=== PATIENT | female | born 1995 | race Caucasian/White ===

== ENCOUNTER 2017-02-09 10:33 | Emergency (ER) | payer OTHER ==
[2017-02-09 10:37] VITALS: BMI 24.0
--- NOTE | 2017-02-09 11:22 | PDOC ---
History of Present Illness - General Chief Complaint: Syncope/Near Syncope Stated Complaint: NEAR SYNCOPE, 17 WKS Time Seen by Provider: 02/09/17 10:44 History Source: Patient Exam Limitations: No Limitations - History of Present Illness Initial Comments: 02/09/17 12:02 21-year-old female presents the ED with complaints of sudden onset of nausea followed by 2 episodes of vomiting. Patient states immediately after vomiting she felt dizzy followed by a syncopal episode. Patient states had no headache, abdominal pain, or fever prior to the episode. Patient states currently is asymptomatic and unsure why she vomited but states maybe it was due to the medication she recently received for chlamydia treatment. Patient has no other complaints but is currently 16 weeks and is followed at the clinic. Patient has no urinary complaints or bowel complaints. Pt states has been eating and drinking , progressing well with . Presenting Symptoms: Syncope, Vomiting Timing/Duration: reports: resolved prior to arrival Severity/Quality: reports: moderate Chest Pain Radiation: reports: no radiation Nitro Today/Relief: Yes: no nitro taken today Aspirin Received prior to arrival (Core Measure): Yes: no aspirin today Associated Symptoms: Yes: Syncope, Vomiting Past History - Travel Traveled outside of the country in the last 30 days: No Close contact w/someone who was outside of country & ill: No - Past Medical History Allergies/Adverse Reactions: Allergies Allergy/AdvReac Type Severity Reaction Status Date / Time No Known Allergies Allergy Verified 02/09/17 10:37 Other medical history: PATIENT DENIES MEDICAL HISTORY - Reproductive History Is Patient Now?: Yes - Psycho/Social/Smoking Cessation Hx Suicidal Ideation: No Smoking History: Never smoked Hx Alcohol Use: No Drug/Substance Use Hx: No Patient Lives Alone: No Lives with/in: spouse/SO Review of Systems - Review of Systems Able to Perform ROS?: Yes Constitutional: No: Symptoms Reported HEENTM: No: Symptoms Reported Respiratory: No: Symptoms reported Cardiac (ROS): Yes: Syncope ABD/GI: Yes: Nausea, Vomiting. No: Diarrhea, Poor Appetite, Poor Fluid Intake, Abdominal cramping : No: Symptoms Reported Musculoskeletal: No: Symptoms Reported Integumentary: No: Symptoms Reported Neurological: No: Symptoms reported Endocrine: No: Symptoms Reported Hematologic/Lymphatic: No: Symptoms Reported *Physical Exam - Vital Signs Last Vital Signs Temp Pulse Resp BP Pulse Ox 98.2 F 68 18 104/58 99 02/09/17 10:34 02/09/17 10:34 02/09/17 10:34 02/09/17 10:34 02/09/17 10:34 - Physical Exam General Appearance: Yes: Nourished, Appropriately Dressed. No: Apparent Distress HEENT: positive: EOMI, JERO. negative: Pale Conjunctivae Neck: positive: Supple Respiratory/Chest: positive: Lungs Clear, Normal Breath Sounds. negative: Respiratory Distress, Accessory Muscle Use Cardiovascular: positive: Regular Rhythm, Regular Rate. negative: Murmur Gastrointestinal/Abdominal: positive: Soft. negative: Tenderness Extremity: positive: Normal Capillary Refill. negative: Pedal Edema Integumentary: positive: Normal Color, Warm, Moist Neurologic: positive: Normal Mood/Affect, Motor Strength 01/01 ED Treatment Course - LABORATORY CBC & Chemistry Diagram: 02/09/17 11:30 02/09/17 11:30 - ADDITIONAL ORDERS Additional order review: Laboratory Results 02/09/17 02/09/17 11:30 11:30 Sodium 137 Potassium 4.0 Chloride 106 Carbon Dioxide 22 Anion Gap 9 BUN 8 Creatinine 0.3 L Creat Clearance w eGFR > 60 Random Glucose 70 L Calcium 8.8 Magnesium 1.8 Total Bilirubin 0.2 AST 21 ALT 19 Alkaline Phosphatase 59 Creatine Kinase 68 Troponin I < 0.02 Total Protein 6.6 Albumin 3.3 L Urine Color Yellow Urine Appearance Slcloudy Urine pH 8.0 Urine Protein 1+ H Urine Glucose (UA) Negative Urine Ketones Negative Urine Blood Negative Urine Nitrite Negative Urine Bilirubin Negative Urine Urobilinogen Negative Ur Leukocyte Esterase 2+ H Urine RBC 2 Urine WBC 7 Ur Epithelial Cells Rare Urine Mucus Few 02/09/17 11:30 RBC 4.05 MCV 87.4 MCHC 34.5 RDW 14.6 MPV 7.5 Neutrophils % 86.6 H Lymphocytes % 9.0 Monocytes % 3.9 Eosinophils % 0.2 Basophils % 0.3 - RADIOLOGY Radiology Studies Ordered: Category Date Time Status US(SINGLE) [US] Stat Ultrasound 02/09/17 12:11 Completed Medical Decision Making - Medical Decision Making 02/09/17 12:08 Patient status post 2 episodes of vomiting followed by a syncopal episode. Patient states no complaints presently and is currently 16 weeks . Patient states was treated for chlamydia last week but denied any associated symptoms prior to today. Patient on exam had no acute findings. Patient with no complaints presently. Patient ordered for labs, urine, EKG and ultrasound. 02/09/17 13:40 Laboratory Tests 02/09/17 02/09/17 02/09/17 11:30 11:30 11:30 WBC 14.1 H Hgb 12.2 Hct 35.4 Neutrophils % 86.6 H Sodium 137 Potassium 4.0 Chloride 106 Carbon Dioxide 22 Anion Gap 9 Creatinine 0.3 L Random Glucose 70 L Creatine Kinase 68 Troponin I < 0.02 Urine Protein 1+ H Urine Nitrite Negative Ur Leukocyte Esterase 2+ H Urine WBC 7 Ultrasound shows a single live intrauterine measuring 17 weeks 4 days with a heart rate of 1 48 bpm. Patient given 2 containers of orange juice secondary to low glucose of 70. Patient also be treated with Macrobid secondary to bacteremia noted in urine. Urine culture was sent. Patient to follow-up with her PAPER HANDLER. *DC/Admit/Observation/Transfer Diagnosis at time of Disposition: Urinary tract infection Qualifiers: Urinary tract infection type: acute cystitis Hematuria presence: without hematuria Qualified Code(s): N30.00 - Acute cystitis without hematuria Syncope Qualifiers: Syncope type: vasovagal syncope Qualified Code(s): R55 - Syncope and collapse - Discharge Dispostion Disposition: HOME Condition at time of disposition: Improved - Referrals Referrals: Linda Wilson MD [Primary Care Provider] - - Patient Instructions Printed Discharge Instructions: DI for Syncope in Adults (Fainting), DI for Urinary Tract Infection (UTI) Additional Instructions: Please eat small frequent meals throughout the day and take antibiotics as prescribed. Patient plenty of fluids and follow-up with the DESIGN SUPERVISOR.
[2017-02-09 11:58] LABS: URINE APPEARANCE SLCLOUDY; URINE BILIRUBIN NEGATIVE (NEGATIVE); URINE BLOOD NEGATIVE (NEGATIVE); URINE COLOR YELLOW; URINE GLUCOSE (UA) NEGATIVE (NEGATIVE); URINE KETONE NEGATIVE (NEGATIVE); URINE LEUK ESTERASE 2+ (NEGATIVE); URINE NITRITE NEGATIVE (NEGATIVE); URINE PROTEIN 1+ (NEGATIVE); URINE UROBILINOGEN NEGATIVE E.U./dl (0.2-1.0)
[2017-02-09 12:00] LABS: URINE MUCUS FEW; URINE RBC 2 /hpf (0-3); URINE WBC 7 /hpf (3-5)
[2017-02-09 12:06] LABS: BASOPHIL 0.3 % (0-2.0); EOSINOPHIL 0.2 % (0-4.5); MCH 30.2 pg (25.7-33.7); MCHC 34.5 g/dl (32.0-36.0); MEAN CELL VOLUME 87.4 fl (80-96); MEAN PLT VOLUME 7.5 fl (7.5-11.1); NEUTROPHILS 86.6 % (42.8-82.8); PLATELET COUNT 249 K/MM3 (134-434); RDW 14.6 % (11.6-15.6); WHITE BLOOD COUNT 14.1 K/mm3 (4.0-10.0)
[2017-02-09 12:33] LABS: ALBUMIN 3.3 g/dl (3.4-5.0); ALK PHOS 59 U/L (45-117); BILIRUBIN,TOTAL 0.2 mg/dL (0.2-1.0); CALCIUM 8.8 mg/dL (8.5-10.1); CO2 22 mmol/L (21-32); COCKROFT - GAULT 261.2645; CREATININE 0.3 mg/dL (0.55-1.02); GLUCOSE,RANDOM 70 mg/dL (74-106); SGPT/ALT 19 U/L (12-78); TOT PROT 6.6 g/dl (6.4-8.2); TROPONIN I < 0.02 ng/ml (0.00-0.05)
[2017-02-09 12:36] LABS: ANION GAP 9 (8-16); MAGNESIUM 1.8 mg/dL (1.8-2.4); SGOT/AST 21 U/L (15-37)
[2017-02-09 14:00] VITALS: BP 102/62; PULSE 72; TEMP 98.6
--- NOTE | 2017-02-09 15:21 | EKG ---
Test Reason : Blood Pressure : / mmHG Vent. Rate : 067 BPM Atrial Rate : 067 BPM P-R Int : 170 ms QRS Dur : 082 ms QT Int : 404 ms P-R-T Axes : 000 024 022 degrees QTc Int : 426 ms NORMAL SINUS RHYTHM NORMAL ECG NO PREVIOUS ECGS AVAILABLE Confirmed by SILVESTRE LAYNE MD ([id number]) on 02/09/2017 3:20:59 PM Referred By: Confirmed By:SILVESTRE LAYNE MD
== END 2017-02-09 13:57 | disposition home or self-care (01) ==
LOC: JER 10:33
DX: O23.42 Unspecified infection of urinary tract in pregnancy, second trimester (principal); Z3A.17 17 weeks gestation of pregnancy; R55 Syncope and collapse
CPT/HCPCS: 36415; 76801-TC; 80053; 81003; 81015; 82550; 83735; 84484; 85025; 93005; 93010; 99285-25

== ENCOUNTER 2017-02-13 13:20 | Emergency (ER) | payer OTHER ==
[2017-02-13 13:26] VITALS: BMI 24.0
[2017-02-13] MEDS ORDERED: METOCLOPRAMIDE HCL 10 MG TABLET (FP) PO ONE ×2 (14:19→14:43)
[2017-02-13] MEDS ORDERED: ACETAMINOPHEN 325 MG TABLET (FP) PO ONE (14:19)
--- NOTE | 2017-02-13 14:32 | PDOC ---
History of Present Illness <Tariq Lewis - Last Filed: 02/13/17 15:14> - General History Source: Patient Exam Limitations: No Limitations - History of Present Illness Initial Comments: 02/13/17 17:30 The patient is a 21 year old female, 17 weeks , with no significant past medical history, who presents to the ER with persistent headache for five days. Patient states she syncopized five days ago for which she came here to the ER to get checked. Patient says she was diagnosed with a UTI and was given 3 -day supply of Macrobin antiobiotic. Patient states she has been having a mild persistent headaches for five days and would like to know if whether the antiobiotics or the syncopal episode caused this headache. Patient localizes the headache to the temples and states the pain is more of a discomfort and very mild. She states she took tylenol without relief of symptoms. The pt denies any vision changes, n/v, neck pain, back pain, numbness/tingling/ weakness. Patient states this is her first . Denies nausea, vomiting, abdominal pain Denies syncope, lightheadedness, dizziness, changes in vision Denies fever, chills, cough <Mishel Mary - Last Filed: 02/13/17 17:31> - General Chief Complaint: Headache Stated Complaint: HEADACHE/17 WKS PRG Time Seen by Provider: 02/13/17 14:04 Past History - Psycho/Social/Smoking Cessation Hx Anxiety: No Suicidal Ideation: No Smoking History: Never smoked Hx Alcohol Use: No Drug/Substance Use Hx: No Substance Use Type: None <Tariq Lewis - Last Filed: 02/13/17 15:14> <Mishel Mary - Last Filed: 02/13/17 17:31> - Past Medical History Allergies/Adverse Reactions: Allergies Allergy/AdvReac Type Severity Reaction Status Date / Time No Known Allergies Allergy Verified 02/13/17 13:26 Home Medications: Ambulatory Orders Nitrofurantoin Monohyd/M-Cryst [Macrobid -] 100 mg PO BID #14 capsule 02/09/17 Review of Systems - Review of Systems Able to Perform ROS?: Yes Comments:: 02/13/17 17:30 CONSTITUTIONAL: No reported: Fever, Chills, Diaphoresis, Generalized Weakness, Malaise, Loss of Appetite HEENT: No reported: Rhinorrhea, Nasal Congestion, Throat Pain, Throat Swelling, Difficulty Swallowing, Mouth Swelling, Ear Pain, Eye Pain, Visual Changes CARDIOVASCULAR: No reported: Chest Pain, Syncope, Palpitations, Irregular Heart Rate, Lightheadedness, Peripheral Edema RESPIRATORY: No reported: Cough, Shortness of Breath, SOB with Exertion, Orthopnea, Wheezing , Stridor, Hemoptysis GASTROINTESTINAL: No reported: Abdominal pain, Abdominal Distension, Nausea, Vomiting, Diarrhea, Constipation, Melena, Hematochezia GENITOURINARY: No reported: Dysuria, Frequency, Urgency, Hesitancy, Flank Pain, Genital Pain MUSCULOSKELETAL: No reported: Myalgia, Arthralgia, Joint Swelling, Back pain, Neck Pain SKIN: No reported: Rash, Itching, Pallor HEMEATOLOGIC/IMMUNOLOGIC: No reported: Easy Bleeding, Easy Bruising, Lymphadenopathy, Frequent infections ENDOCRINE: No reported: Unexplained Weight Gain, Unexplained Weight Loss, Heat Intolerance , Cold Intolerance NEUROLOGIC: Reported: Headache No reported: Focal Weakness, Paresthesias, Vertigo, Lightheadedness, Unsteady Gait, Seizure, Mental Status Changes, Incontinence PSYCHIATRIC: No reported: Anxiety, Depression <Uts,Mishel - Last Filed: 02/13/17 17:31> *Physical Exam - Vital Signs Last Vital Signs Temp Pulse Resp BP Pulse Ox 98.4 F 62 18 120/64 100 02/13/17 13:22 02/13/17 13:22 02/13/17 13:22 02/13/17 13:22 02/13/17 13:22 <Debbie,Tariq - Last Filed: 02/13/17 15:14> - Vital Signs Last Vital Signs Temp Pulse Resp BP Pulse Ox 97.1 F L 67 20 107/65 100 02/13/17 15:30 02/13/17 15:30 02/13/17 15:30 02/13/17 15:30 02/13/17 15:30 - Physical Exam Comments: 02/13/17 17:30 GENERAL: The patient is awake, alert, and fully oriented, Nontoxic - in no acute distress. HEAD: Normocephalic, atraumatic. EYES: extraocular movements intact, sclera anicteric, conjunctiva clear. ENT: Normal voice, Moist mucous membranes. NECK: Normal range of motion, supple LUNGS: Breath sounds equal, clear to auscultation bilaterally. No wheezes, no rhonchi, no rales. HEART: Regular rate and rhythm, without murmur, rub or gallop. ABDOMEN: Soft, nontender, normoactive bowel sounds. No guarding, no rebound.No CVA tenderness EXTREMITIES: Normal range of motion, no edema. No clubbing or cyanosis. No cords, erythema, or tenderness. NEUROLOGICAL: No facial assymetry, Normal speech, PSYCH: Normal mood, normal affect. SKIN: Warm, Dry, normal turgor <TyraMishel - Last Filed: 02/13/17 17:31> ED Treatment Course - Medications Given in the ED: ED Medications Discontinued Medications Generic Name Dose Route Start Last Admin Trade Name Olga PRN Reason Stop Dose Admin Acetaminophen 650 mg 02/13/17 14:19 02/13/17 14:45 Tylenol - PO 02/13/17 14:20 650 mg ONCE ONE Administration Metoclopramide HCl 10 mg 02/13/17 14:19 02/13/17 14:45 Reglan - PO 02/13/17 14:20 10 mg ONCE ONE Administration <Tyra,Mishel - Last Filed: 02/13/17 17:31> Medical Decision Making - Medical Decision Making 02/13/17 14:22 21y F at approx 17 weeks presents with headache, recent diagnosis of uti, finshed macrobid course. pt states headache is constant, mild, frontal w/o associated n/v, vision changes, photophobia, f/c, neck pain. Pt denies phi pain but states it is 'there'. pts exam is unremarkble suspect tension headache possible related to trauma. will give tylenol and reglan will reassess 02/13/17 15:10 pt feels improed no headache currently wants to go home chatting comfortably with her friend without complaints. I discussed the physical exam findings, ancillary test results and final diagnoses with the patient. I answered all of the patient's questions. The patient was satisfied with the care received and felt comfortable with the discharge plan and treatment plan. The patient will call their primary care physician within 24 hours to arrange follow-up and will return to the Emergency Department with any new, persistent or worsening symptoms. <Tariq Lewis - Last Filed: 02/13/17 15:14> *DC/Admit/Observation/Transfer - Discharge Dispostion Admit: No <Tariq Lewis - Last Filed: 02/13/17 15:14> - Attestations Scribe Attestion: 02/13/17 17:30 Documentation prepared by Mishel Mary, acting as center medical and lab director for Tariq Lewis MD. <Mishel Mary - Last Filed: 02/13/17 17:31> Diagnosis at time of Disposition: Headache Qualifiers: Headache type: tension-type Headache chronicity pattern: acute headache Intractability: not intractable Qualified Code(s): G44.209 - Tension-type headache, unspecified, not intractable - Discharge Dispostion Disposition: HOME Condition at time of disposition: Improved - Referrals Referrals: Linda Wilson MD [Primary Care Provider] - - Patient Instructions Printed Discharge Instructions: DI for Hormonal and Tension Headaches Additional Instructions: Vuelva al departamento de emergencia inmediatamente con CUALQUIER nuevo, persistente o empeorando los sntomas. Debe llamar y seguir con rashid mdico maana para lucia evaluacin ms detallada de perri sntomas. Los resultados fueron discutidos con usted. Por favor, asegrese de que rashid mdico revise los resultados de rashid evaluacin de emergencia. Si usted tuvo alguna radiografa concepicón rashid visita, fue ledo preliminarmente por m mismo, un Radilogo lo revisar y si hay algn hallazgo adicional le llamaremos. == Return to the emergency department immediately with ANY new, persistent or worsening symptoms. You MUST call and follow up with your doctor tomorrow for further evaluation of your symptoms. Results were discussed with you. Please make sure your doctor reviews the results of your emergency evaluation. If you had any xrays during your visit, it was read preliminarily by myself, a Radiologist will review it and if there are any additional findings we will call you. Print Language: MONGOLIAN
[2017-02-13] MEDS ORDERED: ACETAMINOPHEN 325 MG TABLET (FP) ONE (14:42)
[2017-02-13 15:58] VITALS: BP 107/65; PULSE 67; TEMP 97.1
== END 2017-02-13 15:30 | disposition home or self-care (01) ==
LOC: JER 13:20
DX: O26.892 Other specified pregnancy related conditions, second trimester (principal); G44.209 Tension-type headache, unspecified, not intractable; Z3A.17 17 weeks gestation of pregnancy
CPT/HCPCS: 99282-25

== ENCOUNTER 2017-07-19 17:40 | Inpatient (IN) | payer OTHER ==
[2017-07-19] MEDS: DEXTROSE 5%-LACTATED RINGERS 1,000 ML IV SCH (17:50)
[2017-07-19 18:19] VITALS: BMI 28.1
[2017-07-19 18:26] LABS: BASOPHIL 0.3 % (0-2.0); MCH 25.6 pg (25.7-33.7); MCHC 32.6 g/dl (32.0-36.0); MEAN CELL VOLUME 78.5 fl (80-96); NEUTROPHILS 79.5 % (42.8-82.8); PLATELET COUNT 305 K/MM3 (134-434); RDW 15.1 % (11.6-15.6); WHITE BLOOD COUNT 9.5 K/mm3 (4.0-10.0)
[2017-07-19 18:41] LABS: INR 0.94 (0.82-1.09); PROTHROMBIN TIME (PATIENT) 10.6 SEC (9.98-11.88)
[2017-07-19 18:43] LABS: ACTIVATED PTT 25.3 SECONDS (26.9-34.4)
[2017-07-19 18:51] LABS: ANION GAP 9 (8-16); CALCIUM 8.2 mg/dL (8.5-10.1); CO2 22 mmol/L (21-32); CREATININE 0.4 mg/dL (0.55-1.02); GLUCOSE,RANDOM 89 mg/dL (74-106)
[2017-07-19] MEDS ORDERED: BUTORPHANOL TARTRATE 1 MG/ML VIAL IVPB ONE (20:29)
[2017-07-19] MEDS ORDERED: BUTORPHANOL TARTRATE 1 MG/ML VIAL IVPB PRN (20:29)
[2017-07-19] MEDS ORDERED: PROMETHAZINE HCL 25 MG/1 ML VIAL IVPB ONE (20:45)
[2017-07-20] MEDS: DEXTROSE 5%-LACTATED RINGERS 1,000 ML IV SCH ×2 (01:32→08:44)
--- NOTE | 2017-07-20 03:25 | HP ---
Past Medical History - Admission Chief Complaint: Rupture of membrane History of Present Illness: 22 yo , @ 40.4 weeks gestation, EDC 07/16/17, admitted due to spontaneous rupture of membrane ( 3pm ). History Source: Patient Limitations to Obtaining History: No Limitations - Past Medical History ...: 1 ...Para: 0 ...Term: 0 ...: 0 ...Spon : 0 ...Induced : 0 ...Multiple Gestation: 0 ...LMP: 11/07/16 ... Weeks Gestation by Dates: 36.2 ...EDC by Dates: 08/14/17 ...EDC by Sono: 07/16/17 - Past Surgical History Past Surgical History: Yes: None Hx Myomectomy: No Hx Transabdominal Cerclage: No - Smoking History Smoking history: Never smoked Have you smoked in the past 12 months: No - Alcohol/Substance Use Hx Alcohol Use: No History of Substance Use: reports: None - Social History History of Recent Travel: No Home Medications - Allergies Allergies/Adverse Reactions: Allergies Allergy/AdvReac Type Severity Reaction Status Date / Time No Known Allergies Allergy Verified 07/19/17 18:21 - Home Medications Home Medications: Ambulatory Orders Vit #108/Iron/FA [ One Tablet] 1 tab PO DAILY 07/19/17 Family Disease History - Family Disease History Family History: Unremarkable Review of Systems - Review of Systems Constitutional: reports: No Symptoms Eyes: reports: No Symptoms HENT: reports: No Symptoms Neck: reports: No Symptoms Cardiovascular: reports: No Symptoms Respiratory: reports: No Symptoms Gastrointestinal: reports: No Symptoms Genitourinary: reports: Other (Leakage of fluid) Breasts: reports: No Symptoms Reported Musculoskeletal: reports: No Symptoms Integumentary: reports: No Symptoms Neurological: reports: No Symptoms Endocrine: reports: No Symptoms Hematology/Lymphatic: reports: No Symptoms Physical Exam - Maternity Vital Signs: Vital Signs Temperature 98.1 F 07/20/17 02:00 Pulse Rate 68 07/20/17 02:00 Respiratory Rate 20 07/20/17 02:00 Blood Pressure 131/76 07/20/17 02:00 O2 Sat by Pulse Oximetry (%) Constitutional: Yes: Well Nourished Eyes: Yes: Conjunctiva Clear HENT: Yes: Atraumatic Neck: Yes: Supple, Trachea Midline Cardiovascular: Yes: Regular Rate and Rhythm Lungs: Clear to auscultation Breast(s): Yes: WNL - Abdominal Exam/OB Number of Fetuses: Single Presentation: Vertex Contractions: Yes Regularity: Regular Intensity: Moderate - Vaginal Exam/OB Dilatation (cm): 3 Effacement (%): 80 Amniotic Membrane Status: Ruptured Meconium: [place]: -2 - Physical Exam ...Motor Strength: WNL Psychiatric: Yes: Alert, Oriented - Labs Lab Results: CBC, BMP 07/19/17 18:10 07/19/17 18:10 Problem List - Problems (1) Spontaneous rupture of amniotic membranes Code(s): ORB3800 - Assessment/Plan Spontaneous rupture of membrane. Admit to L&D Analgesia as needed Anticipate
--- NOTE | 2017-07-20 03:30 | PN ---
Progress Note (short form) - Note Progress Note: Patient seen and evaluated. She's lying comfortably in bed; status post Stadol. FHR : Reassuring [place] : + regular contractions VE : /-1 A/P : Active labor anticipate Problem List - Problems (1) Spontaneous rupture of amniotic membranes Code(s): BLU0442 -
[2017-07-20] MEDS ORDERED: AMPICILLIN - 2 GM in SODIUM CHLORIDE 100 ML IVPB ONE (09:00)
[2017-07-20] MEDS ORDERED: BUTORPHANOL TARTRATE 1 MG/ML VIAL IVPB ONE (09:30)
[2017-07-20] MEDS ORDERED: OXYTOCIN 15 UNITS/ LR 250 ML 15 UNIT/250 ML INFUS.BAG IVPB SCH (09:30)
[2017-07-20] MEDS ORDERED: PROMETHAZINE HCL 25 MG/1 ML VIAL IVPB ONE (09:30)
[2017-07-20] MEDS ORDERED: AMPICILLIN - 1 GM in SODIUM CHLORIDE 100 ML IVPB SCH (13:00)
--- NOTE | 2017-07-20 13:36 | PN ---
Progress Note (short form) - Note Progress Note: cx 9 cm, 100 vx 0, mr, fhr cat 1
[2017-07-20 15:33] LABS: VENOUS PH 7.18 (7.32-7.42)
[2017-07-20 15:34] LABS: VENOUS BLOOD GAS HCO3 17.7 meq/L (19-25)
[2017-07-20 15:34] LABS: ARTERIAL BLOOD GAS BASE EXCESS -8.4 meq/l (-2-2); ARTERIAL BLOOD GAS HCO3 20.3 meq/L (22-26); ARTERIAL BLOOD GAS pH 7.21 (7.35-7.45)
[2017-07-20] MEDS ORDERED: oxyCODONE HCL 5 MG TABLET PO PRN (15:36)
[2017-07-20] MEDS ORDERED: BISACODYL 10 MG SUPP.RECT RC PRN (15:36)
[2017-07-20] MEDS ORDERED: METHYLERGONOVINE MALEATE 0.2 MG/1 ML AMP IM PRN (15:36)
[2017-07-20] MEDS ORDERED: BENZOCAINE 28 GM HEMORRHOIDAL OINTMENT TP PRN (15:36)
[2017-07-20] MEDS ORDERED: WITCH HAZEL 50% (TUCKS) 40 PAD/JAR PAD TP PRN (15:36)
[2017-07-20] MEDS ORDERED: BENZOCAINE 20% 57 GM BOTTLE TP PRN (15:36)
[2017-07-20 15:37] LABS: ARTERIAL BLOOD GAS PO2 20.8 mmHg (80-100)
[2017-07-20] MEDS ORDERED: D5W-LR W/ 20 UNITS OXYTOCIN 20 UNIT/1,000 ML INFUS.BAG IV SCH (15:45)
[2017-07-20] MEDS ORDERED: SODIUM CHLORIDE 1,000 ML with OXYTOCIN 20 UNIT IV SCH (16:30)
[2017-07-20] MEDS ORDERED: OXYTOCIN 20 UNITS in 0.9% NS 20 UNIT/1,000 ML INFUS.BAG IV SCH (16:45)
[2017-07-20] MEDS: ACETAMINOPHEN 325 MG TABLET (FP) PO PRN (20:17)
[2017-07-20] MEDS: IBUPROFEN 600 MG TABLET (FP) PO PRN (20:17)
[2017-07-20] MEDS: FERROUS SO4 325 MG TABLET (FP) PO SCH (22:08)
[2017-07-21 08:27] LABS: BASOPHIL 0.3 % (0-2.0); EOSINOPHIL 0.5 % (0-4.5); MCH 25.5 pg (25.7-33.7); MCHC 32.1 g/dl (32.0-36.0); MEAN CELL VOLUME 79.5 fl (80-96); MEAN PLT VOLUME 7.8 fl (7.5-11.1); NEUTROPHILS 80.1 % (42.8-82.8); PLATELET COUNT 259 K/MM3 (134-434); RDW 14.7 % (11.6-15.6); WHITE BLOOD COUNT 16.3 K/mm3 (4.0-10.0)
[2017-07-21] MEDS ORDERED: DIPHTH,PERTUSS(ACELL),TET 0.5 ML DISP.SYRIN IM ONE (10:00)
--- NOTE | 2017-07-21 10:13 | PN ---
Post Progress Note - Subjective Subjective: no c/o cramps. no c/o dizziness Post Day: 1 Type of Delivery: Vital Signs: Vital Signs Temperature 97.8 F 07/20/17 22:00 Pulse Rate 91 H 07/20/17 22:00 Respiratory Rate 20 07/20/17 22:00 Blood Pressure 125/78 07/20/17 22:00 O2 Sat by Pulse Oximetry (%) Breast Exam: Yes: Soft, Other (BF ). No: Engorged Uterus: Yes: Fundus Firm, Fundus below umbilicus, Non-tender Lochia: Yes: Rubra Lochia, amount: Moderate Extremities: Yes: Calves non-tender Perineum: Yes: Intact Activity: Ambulating - Labs Labs: CBC WBC 16.3 K/mm3 (4.0-10.0) H D 07/21/17 07:45 RBC 3.40 M/mm3 (3.60-5.2) L 07/21/17 07:45 Hgb 8.7 GM/dL (10.7-15.3) L D 07/21/17 07:45 Hct 27.0 % (32.4-45.2) L D 07/21/17 07:45 MCV 79.5 fl (80-96) L 07/21/17 07:45 MCH 25.5 pg (25.7-33.7) L 07/21/17 07:45 MCHC 32.1 g/dl (32.0-36.0) 07/21/17 07:45 RDW 14.7 % (11.6-15.6) 07/21/17 07:45 Plt Count 259 K/MM3 (134-434) 07/21/17 07:45 MPV 7.8 fl (7.5-11.1) 07/21/17 07:45 Neutrophils % 80.1 % (42.8-82.8) 07/21/17 07:45 Lymphocytes % 12.8 % (8-40) 07/21/17 07:45 Monocytes % 6.3 % (3.8-10.2) 07/21/17 07:45 Eosinophils % 0.5 % (0-4.5) 07/21/17 07:45 Basophils % 0.3 % (0-2.0) 07/21/17 07:45 Assessment/Plan Anemia-stable Plan ct pp care discharge tomorrow.
[2017-07-21] MEDS: PRENATAL VITAMINS W/ FOLIC ACID TABLET (FP) PO SCH (10:18)
[2017-07-21] MEDS: FERROUS SO4 325 MG TABLET (FP) PO SCH ×2 (10:18→22:05)
[2017-07-21] MEDS: IBUPROFEN 600 MG TABLET (FP) PO PRN (10:20)
[2017-07-21] MEDS: ACETAMINOPHEN 325 MG TABLET (FP) PO PRN (10:21)
[2017-07-21] MEDS ORDERED: SENNOSIDES/DOCUSATE COMBO (SENNA PLUS) TABLET (UD) PO PRN (22:00)
--- NOTE | 2017-07-22 05:42 | DS ---
Physical Exam-SEASONAL DRIVER Vital Signs: Vital Signs Temperature 97.8 F 07/21/17 22:00 Pulse Rate 73 07/21/17 22:00 Respiratory Rate 20 07/21/17 22:00 Blood Pressure 90/50 07/21/17 22:00 O2 Sat by Pulse Oximetry (%) Constitutional: Yes: Well Nourished Eyes: Yes: Conjunctiva Clear Neck: Yes: Supple, Trachea Midline Cardiovascular: Yes: Regular Rate and Rhythm Respiratory: Yes: Regular Gastrointestinal: Yes: Normal Bowel Sounds External Genitalia: Yes: Normal Vaginal Exam: Yes: Normal Cervix: Yes: Normal Uterus: Yes: Firm ....Post : Yes: Uterus firm, Moderate lochia serosa Neurological: Yes: Alert, Oriented ...Motor Strength: WNL Psychiatric: Yes: Alert, Oriented Labs: CBC, BMP 07/21/17 07:45 07/19/17 18:10 Delivery - Delivery Type of Anesthesia: Local Episiotomy/Laceration: Midline EBL (cc): 300 Delivery, Single - Stages of Labor Date 1st Stage Initiatied: 07/19/17 Time 1st Stage Initiated: 20:15 Date 2nd Stage Initiated: 07/20/17 Time 2nd Stage Initiated: 14:00 Date of Delivery: 07/20/17 Time of Delivery: 14:24 Time Placenta Delivered: 14:35 - Condition of Infant Baseball Inspector/Director Of Placement Present: Yes Name: Scotty Templeton Gender: Male Weight: 6 lb 11 oz Position: Left, OA Total Hours ROM (Hrs/Mins): 23.5 - 1 Minute Total Score: 9 5 Minutes Total Score: 9 - Feeding Plan Initial Plan: Exclusive throughout hospitalization Discharge Summary Reason For Visit: LABOR Current Active Problems Spontaneous rupture of amniotic membranes (Acute) Status post normal vaginal delivery (Acute) Procedures: Principal: Normal spontaneous vaginal delivery Hospital Course: Routine care Condition: Good - Instructions Diet, Activity, Other Instructions: Regular diet No douching, no sexual intercourse F/U in clinic in 6 weeks Disposition: HOME - Home Medications Comprehensive Discharge Medication List: Ambulatory Orders Vit #108/Iron/FA [ One Tablet] 1 tab PO DAILY 07/19/17
[2017-07-22 08:32] VITALS: BP 111/70; PULSE 79; TEMP 98.7
[2017-07-22] MEDS: IBUPROFEN 600 MG TABLET (FP) PO PRN (09:28)
[2017-07-22] MEDS: ACETAMINOPHEN 325 MG TABLET (FP) PO PRN (09:29)
[2017-07-22] MEDS: FERROUS SO4 325 MG TABLET (FP) PO SCH (09:30)
[2017-07-22] MEDS: PRENATAL VITAMINS W/ FOLIC ACID TABLET (FP) PO SCH (09:30)
== END 2017-07-22 12:50 | disposition home or self-care (01) | DRG 560 ==
LOC: JLDR 17:40 → J3W 07-20 17:06
PROVIDERS: ADMIT Obstetrics & Gynecology; ATTEND Obstetrics & Gynecology
PROC: 10E0XZZ Delivery of Products of Conception, External Approach (ICD-10-PCS; principal; 2017-07-20)
DX: O48.0 Post-term pregnancy (principal); O99.02 Anemia complicating childbirth; D64.9 Anemia, unspecified; Z3A.40 40 weeks gestation of pregnancy; Z37.0 Single live birth
CPT/HCPCS: 36415; 36600; 59409; 80048; 82803; 85025; 85610; 85730; 86593; 86850; 86900; 86901; 90715

== ENCOUNTER 2017-09-15 17:20 | Emergency (ER) | payer OTHER ==
--- NOTE | 2017-09-15 17:45 | PDOC ---
Rapid Medical Evaluation Time Seen by Provider: 09/15/17 17:44 Medical Evaluation: Allergies Allergy/AdvReac Type Severity Reaction Status Date / Time No Known Allergies Allergy Verified 07/19/17 18:21 09/15/17 17:46 I have performed a brief in-person evaluation of this patient. The patient presents with a chief complaint of: Foreign body sensation to vagina for 3 weeks s/p SA Pertinent physical exam findings: ABD: SNTND I have ordered the following: nothing The patient will proceed to the ED for further evaluation. 09/15/17 17:51 Discharge Disposition - Diagnosis Vaginal anomaly - Referrals - Patient Instructions - Post Discharge Activity
[2017-09-15 17:53] VITALS: BP 118/64; PULSE 78; TEMP 98.8; BMI 24.7
--- NOTE | 2017-09-15 18:44 | PDOC ---
History of Present Illness - General Chief Complaint: Vaginal Sxs Stated Complaint: PAIN Time Seen by Provider: 09/15/17 17:44 History Source: Patient - History of Present Illness Timing/Duration: reports: other Past History - Past Medical History Allergies/Adverse Reactions: Allergies Allergy/AdvReac Type Severity Reaction Status Date / Time No Known Allergies Allergy Verified 07/19/17 18:21 Home Medications: Ambulatory Orders NK [No Known Home Medication] 09/15/17 Asthma: No Cancer: No Cardiac Disorders: No COPD: No Diabetes: No HTN: No Seizures: No Thyroid Disease: No - Suicide/Smoking/Psychosocial Hx Smoking History: Never smoked Have you smoked in the past 12 months: No Hx Alcohol Use: No Drug/Substance Use Hx: No Substance Use Type: None Hx Substance Use Treatment: No Review of Systems - Review of Systems Constitutional: No: Chills, Fever : No: Dysuria *Physical Exam - Vital Signs Last Vital Signs Temp Pulse Resp BP Pulse Ox 98.8 F 78 18 118/64 98 09/15/17 17:48 09/15/17 17:48 09/15/17 17:48 09/15/17 17:48 09/15/17 17:48 - Physical Exam General Appearance: Yes: Appropriately Dressed. No: Apparent Distress HEENT: positive: Normal Voice Neck: positive: Supple Respiratory/Chest: negative: Respiratory Distress Female Pelvic Exam: positive: other (small wound dehiscenece immediately proximal to rectum w/ small amount of protruding tissue, + significant tenderness to palpation, no erythema or discharge) Gastrointestinal/Abdominal: positive: Soft. negative: Tender Integumentary: positive: Dry, Warm Neurologic: positive: Fully Oriented, Alert, Normal Mood/Affect Medical Decision Making - Medical Decision Making 09/15/17 18:44 22-year-old female, , s/p 07/16 at [facility], C/B episiotomy with repair. States she had stitches removed last week but now complaining of perineal discomfort and pain that's been ongoing 1 month. States she did have follow-up in the clinic a month ago and was told "part of my wound was opened up" but that nothing could be done per patient, here for evaluation. No vaginal discharge, bleeding, fever, chills, constipation or diarrhea See exam Wound dehiscence s/p episiotomy over a month ago here at [facility] Small wound dehiscence immediately proximal to rectal area with protruding tissue, tender to touch, no erythema or purulent discharge -Pain control in ED -Will consult with OB for recommendations 09/15/17 19:22 09/15/17 19:23 09/15/17 19:56 After about an hour, there was no callback from Dr. Pyle or Dr Ocasio. As no intervention needed in ER, willl discharge patient to follow-up in clinic tomorrow. In the meantime, will have patient take Motrin for do sitz bath for pain *DC/Admit/Observation/Transfer Diagnosis at time of Disposition: Wound dehiscence in puerperium, perineal - Discharge Dispostion Disposition: HOME Condition at time of disposition: Good - Referrals Referrals: Aura Squires MD [Primary Care Provider] - - Patient Instructions Additional Instructions: tiene lucia afeccin llamada dehiscencia de la herida, que es cuando se produce lucia ruptura de la herida a lo estella de lucia lnea de sutura. No se necesita intervencin hoy, td deber hacer un seguimiento en la clnica de ginecolog a. Llama a la clnica maana para lucia ayla. Mientras tanto, para el dolor, tome Motrin y sintese en un becca tibio para ayudar con la inflamacin y el dolor. - Post Discharge Activity
== END 2017-09-15 19:59 | disposition home or self-care (01) ==
LOC: JERFT 17:20
DX: O90.1 Disruption of perineal obstetric wound (principal)
CPT/HCPCS: 99281-25